=== PATIENT | male | born 1960 | race Caucasian/White ===

== ENCOUNTER 2023-01-27 10:23 | Outpatient (CLI) | payer OTHER | END 2023-01-27 10:24 | disposition home or self-care (01) | LOC: BICCT 10:23 | PROVIDERS: ATTEND Family Medicine | DX: J44.9 Chronic obstructive pulmonary disease, unspecified (principal); R91.8 Other nonspecific abnormal finding of lung field; J84.10 Pulmonary fibrosis, unspecified; J98.4 Other disorders of lung | CPT/HCPCS: 71260 ==